=== PATIENT | female | born 1995 | race Caucasian/White ===

== ENCOUNTER 2019-03-17 19:15 | Outpatient (CLI) | payer MEDICAID, SELFPAY ==
[2019-03-17 19:38] VITALS: BMI 45.9
[2019-03-17 20:00] LABS: Hematocrit 35.1 % (37-47); Hemoglobin 11.7 g/dL (12.0-15.0); Mean Corp Hgb Conc 33.3 g/dL (32-36); Mean Corpuscular Hgb 30.6 pg (27.0-32.0); Mean Corpuscular Volume 91.9 fL (81-99); Mean Platelet Vol. 11.8 fl (6.2-12.0); Platelet Count 229 K/mm3 (150-450); RBC Distribution Width CV 13.9 % (11.6-14.6); RBC Distribution Width SD 46.3 fl (35.1-43.9); Red Blood Count 3.82 M/mm3 (4.2-5.4); White Blood Count 11.7 K/mm3 (4.4-11.0)
[2019-03-17 20:16] LABS: AST(SGOT) 12 U/L (15-37); Alanine Aminotransfer ALT/SGPT 15 U/L (13-56); Creatinine, Serum 0.63 mg/dL (0.55-1.02); EST Glomerular Filtration Rate 124 mL/min (>60); Est Glom Filt Rate - Afr Amer 150 mL/min (>60); Prothrombin Time (Protime)PT. 13.1 SECONDS (11.7-14.9); Uric Acid 4.2 mg/dL (2.6-6.0)
[2019-03-17 20:17] LABS: Protein, Urine (Random) 46.1 mg/dL (<11.9); Protein:Creat Ratio 170 mg/g CRE (0-200)
[2019-03-17] MEDS: morphine 10 MG/ML Syringe IM (20:58)
[2019-03-17] MEDS: proMETHazine 25 MG/ML Syringe IM (20:59)
--- NOTE | 2019-03-18 08:09 | OB.TRI.NOTE ---
History of Present Illness Date of Service: 03/17/19 Was patient seen by the physician?: No Reason For Visit: ELEVATED BP Date of Service: 03/17/19 Final ARMIN: 04/06/19 Gestational age: 37 Weeks and 2 Days Allergies bupropion [From Wellbutrin] Allergy (Severe, Verified 03/17/19 20:05) Other seizure amoxicillin Allergy (Intermediate, Verified 03/17/19 20:05) Hives Laboratory Studies: Laboratory Tests 03/17/19 03/17/19 03/17/19 Range/Units 19:45 19:45 19:45 WBC (4.4-11.0) K/mm3 RBC (4.2-5.4) M/mm3 Hgb (12.0-15.0) g/dL Hct (37-47) % MCV (81-99) fL MCH (27.0-32.0) pg MCHC (32-36) g/dL RDW Std Deviation (35.1-43.9) fl RDW Coeff of Birgit (11.6-14.6) % Plt Count (150-450) K/mm3 MPV (6.2-12.0) fl PT 13.1 (11.7-14.9) SECONDS INR 1.0 APTT 29.0 (24.1-36.2) Seconds Creatinine 0.63 (0.55-1.02) mg/dL Estim Creat Clear Calc 140.10 ml/min Est GFR (MDRD) Af Amer 150 (>60) mL/min Est GFR (MDRD) Non-Af 124 (>60) mL/min Uric Acid 4.2 (2.6-6.0) mg/dL AST 12 L (15-37) U/L ALT 15 (13-56) U/L U Random Total Protein 46.1 H (<11.9) mg/dL Urine Creatinine 271.00 (NO RANGE EST.) mg/dL Protein/Creatinin Ratio 170 (0-200) mg/g CRE 03/17/19 Range/Units 19:45 WBC 11.7 H (4.4-11.0) K/mm3 RBC 3.82 L (4.2-5.4) M/mm3 Hgb 11.7 L (12.0-15.0) g/dL Hct 35.1 L (37-47) % MCV 91.9 (81-99) fL MCH 30.6 (27.0-32.0) pg MCHC 33.3 (32-36) g/dL RDW Std Deviation 46.3 H (35.1-43.9) fl RDW Coeff of Birgit 13.9 (11.6-14.6) % Plt Count 229 (150-450) K/mm3 MPV 11.8 (6.2-12.0) fl PT (11.7-14.9) SECONDS INR APTT (24.1-36.2) Seconds Creatinine (0.55-1.02) mg/dL Estim Creat Clear Calc ml/min Est GFR (MDRD) Af Amer (>60) mL/min Est GFR (MDRD) Non-Af (>60) mL/min Uric Acid (2.6-6.0) mg/dL AST (15-37) U/L ALT (13-56) U/L U Random Total Protein (<11.9) mg/dL Urine Creatinine (NO RANGE EST.) mg/dL Protein/Creatinin Ratio (0-200) mg/g CRE NST - FHR Rate Baby A Baseline: 145 Variability:: Moderate Accelerations:: 15 x 15 Decelerations:: Late NST Reactive:: Yes FHR Category:: Category I Uterine Activity:: irreg ctxs Impression/Plan 23-year-old 1 para 0 at 37-1/7 weeks gestation. High risk primigravida, maternal obesity with BMI of 45, hypertension on labetalol. Patient had significant edema last night. Preeclampsia labs were normal. Blood pressures were stable. Headache resolved with medication. Patient was discharged home with kick counts and follow-up in the office on 03/19/2019 or return as needed.
== END 2019-03-17 21:50 | disposition home or self-care (01) ==
LOC: WPOUT 19:24 → WP 19:24
PROVIDERS: Family Provider Family Medicine; PCP Family Medicine; Referring Provider Obstetrics & Gynecology; Visit Provider Obstetrics & Gynecology
DX: O16.3 Unspecified maternal hypertension, third trimester (principal); O26.893 Other specified pregnancy related conditions, third trimester; O99.213 Obesity complicating pregnancy, third trimester; E66.9 Obesity, unspecified; Z3A.37 37 weeks gestation of pregnancy
CPT/HCPCS: 36415; 59025; 59050; 82565; 82570; 84156; 84450; 84460; 84550; 85027; 85610; 85730; 96372; 99218; G0378

== ENCOUNTER 2019-03-22 18:55 | Inpatient (IN) | payer MEDICAID, SELFPAY ==
[2019-03-22 19:13] VITALS: BMI 46.2
[2019-03-22] MEDS: 0.9% Saline Lock 10 ML Syringe IV (20:15)
[2019-03-22] MEDS: miSOPROStol 25 MCG TABLET VAGINAL (20:37)
[2019-03-22] MEDS: Mag Hydrox/Al Hydrox/Simeth 30 ML UDC PO (20:37)
[2019-03-22 20:46] LABS: Absolute Lymphocyte Count 2.79 X10^3/uL (0.83-4.51); Absolute Neutrophil Count 7.9 X10^3/uL (2.0-7.7); Basophil# 0.02 X10^3/uL; Basophil% 0.2 % (0-1); Eosinophil# 0.16 X10^3/uL; Eosinophils% 1.4 % (0-5); Hematocrit 36.4 % (37-47); Lymphocyte # 2.79 X10^3/ul (4.0); Lymphocyte % 24.1 % (19-41); Mean Corpuscular Hgb 30.4 pg (27.0-32.0); Mean Corpuscular Volume 92.2 fL (81-99); Mean Platelet Vol. 11.8 fl (6.2-12.0); NRBC Flagged by Analyzer 0 % (0-5); Neutrophil # 7.85 X10^3/uL (2.7-7.7); Neutrophil % 67.7 % (47-70); Platelet Count 231 K/mm3 (150-450); RBC Distribution Width SD 47.3 fl (35.1-43.9); Red Blood Count 3.95 M/mm3 (4.2-5.4); White Blood Count 11.6 K/mm3 (4.4-11.0)
[2019-03-22] MEDS: Labetalol 100 MG Tablet PO (22:07)
[2019-03-22 23:55] LABS: Amphetamine Urine VISTA NEGATIVE (<1000 ng/mL); Barbiturate Urine VISTA NEGATIVE (< 200 ng/mL); Benzodiazepine Urine VISTA NEGATIVE (< 200 ng/mL); Cocaine Urine VISTA NEGATIVE (< 300 ng/mL); Ecstacy Urine VISTA NEGATIVE (< 500 ng/mL); Methadone Urine VISTA NEGATIVE (< 300 ng/mL); PCP Urine VISTA NEGATIVE (< 25 ng/mL); THC Urine VISTA POSITIVE (< 50 ng/mL); Vista UDS pH Range 6
[2019-03-23] MEDS: Mag Hydrox/Al Hydrox/Simeth 30 ML UDC PO ×2 (01:20→13:42)
--- NOTE | 2019-03-23 01:33 | PCM.HP.OB ---
- Problem List (1) Encounter for induction of labor Status: Acute (2) Obesity affecting Status: Acute (3) History of depression Status: Acute (4) History of anxiety Status: Acute (5) Tobacco use complicating Status: Acute (6) Marijuana use Status: Acute (7) History of seizure Status: Acute (8) Chronic hypertension affecting Status: Chronic (9) Anemia affecting Status: Acute History Date of Admission: 12/27/15 Final ARMIN: 04/06/19 Final ARMIN Source: US <20 weeks Gestational age: 38 Weeks and 0 Days History of this : This is a 23 year-old, G [1], P [0], at 37 weeks 6 days gestational age. Presented for medically indicated induction of labor due to Chronic hypertension. Allergies bupropion [From Wellbutrin] Allergy (Severe, Verified 03/22/19 21:06) Other seizure amoxicillin Allergy (Intermediate, Verified 03/22/19 21:06) Hives Home Medications: Home Medications Aspirin E.C. [Ecotrin] 1 tab PO DAILY 03/17/19 Labetalol [Trandate] 100 mg PO BID 03/17/19 Pnv No.95/Ferrous Fum/Folic AC [ Formula Tablet] 1 tab PO DAILY 03/17/19 Smoking Status: Current every day smoker Alcohol: None Substance Use Type: Marijuana Number of Fetus(es): 1 NST - FHR Rate Baby A Baseline: 140 Variability:: Moderate Accelerations:: 15 x 15 Decelerations:: None NST Reactive:: Yes FHR Category:: Category I Uterine Activity:: every 2 to 4 minutes, moderate History Past Pregnancies: Past Pregnancies Delivery Date Name GA/ Weeks Outcome Route Wt Infant Sex Labor Length Anesthesia Delivery Location Provider FOB Labs: Mom's Labs & Results 03/22/19 03/22/19 03/22/19 20:15 20:15 23:20 WBC 11.6 H RBC 3.95 L Hgb 12.0 Hct 36.4 L MCV 92.2 MCH 30.4 MCHC 33.0 RDW Std Deviation 47.3 H RDW Coeff of Birgit 14.0 Plt Count 231 MPV 11.8 Immature Gran % (Auto) 0.600 Neut % (Auto) 67.7 Lymph % (Auto) 24.1 [place] % (Auto) 6.0 Eos % (Auto) 1.4 Baso % (Auto) 0.2 Absolute Neuts (auto) 7.9 H Absolute Lymphs (auto) 2.79 Nucleated RBC % 0 Urine Opiates Screen NEGATIVE Urine Methadone Screen NEGATIVE Ur Barbiturates Screen NEGATIVE Ur Phencyclidine Scrn NEGATIVE Ur Amphetamines Screen NEGATIVE U Methamphetamin-MDMA NEGATIVE U Benzodiazepines Scrn NEGATIVE Urine Cocaine Screen NEGATIVE U Cannabinoids Screen POSITIVE H Ur Drug Screen Comment Blood Type O POSITIVE Antibody Screen NEGATIVE Course Did the patient receive Yes care? Labs Blood Type: O RH: POSITIVE RPR/VDRL/Syphilis Nonreactive Rubella status Immune HbSAg Negative Date Done: 09/30/18 Chlamydia Negative Gonorrhea Negative HIV/AIDS Non-Reactive Group B Strep: Negative Current Obstetrical History Gestational Diabetes No Incompetent Cervix No Infertility No IUGR No Macrosomia No Hypertension/Pre-eclampsia Yes: chronic HTN Placenta Previa/Abruption No PTL/PROM No Uterine anomaly No Oligohydramnios No Polyhydramnios No Multiple gestation No Past Medical History Asthma No Diabetes No Hypertension Yes: chronic HTN Heart disease No Mitral valve prolapse No Neurologic/Seizure disorder/ Yes: migraines; seizure in 2017 Migraines Kidney disease No Liver disease No Varicosities No Clotting disorders/Hx of DVT No Thyroid Dysfunction No Other medical diseases No Psychiatric disorders Yes: depression, anxiety, anger disorder Major trauma No Abnormal PAP smear Yes: 2019 abnormal with first visit Sleep apnea No Mammogram in the last 2 years No Social History Marital Status: SINGLE Alleged father Jay Greco Hx Smoking Yes Smoking Status Current every day smoker Substance Use Type Marijuana How long have you used during for nausea substances (years)? What date/time did you last pt states last used 3 weeks ago use any of the above? Have you had any previous no inpatient or outpatient treatment Review of Systems Constitutional: Denies: Chills, Fever, Weight Change HEENT: Denies: Head Aches, Sinus Congestion, Sinus Drainage Cardiovascular: Denies: Chest Pain, Palpitations Respiratory: Denies: Cough, Shortness of breath at rest, Sputum production Gastrointestinal: Denies: Abdominal Pain, Nausea, Vomiting Genitourinary: Denies: Dysuria Neurological: Denies: Numbness, Tingling, Focal weakness Psychiatric: Denies: Anxiety, Depression, Homicidal Ideations, Suicidal Ideations Physical Exam General: Alert, Oriented x3, Cooperative HEENT: Atraumatic, Normocephalic Cardiovascular: Regular rate, Regular Rhythm, No murmurs Lungs: Clear to auscultation, Normal air movement, No rhonchi, No wheeze Abdomen: Bowel Sounds Present, Gravid Extremities:: No edema Neurological: Deep Tendon Reflexes 2+/4 and Symmetrical. Negative for: Clonus TESTS SUPERINTENDENT: Normal external genitalia Estimated gestational size: Appropriate for gestational size Presentation: Cephalic Assessment/Plan All Active Problems Encounter for induction of labor (Acute) Obesity affecting (Acute) History of depression (Acute) History of anxiety (Acute) Tobacco use complicating (Acute) Marijuana use (Acute) History of seizure (Acute) Anemia affecting (Acute) Syncope (Acute) This is a 23 year-old, G [1], P [0], at 37 weeks gestational age. Induction of Labor Category 1 FHT P: 1) Admit to labor and delivery. Routine labs 2) IV saline lock 3) Planning epidural for pain management. May have placed upon request. 4) Cytotec for cervical ripening. 5) collaborative physician and notified of patient admission and status
[2019-03-23] MEDS: 0.9% Normal Saline 100 ML IV.SOLN. IY (01:48)
[2019-03-23] MEDS: proMETHazine 25 MG/ML Syringe 12.5 MG IV (02:15)
[2019-03-23] MEDS: Nalbuphine 10 MG/ML Ampul IV ×2 (02:15→08:27)
[2019-03-23] MEDS: 0.9% Saline Lock 10 ML Syringe IV (02:15)
[2019-03-23] MEDS: Oxytocin 30 units/NS 500 ml 30 UNITS/500 ML IV.SOLN IV (02:59)
[2019-03-23] MEDS: Lactated Ringers 1,000 ML 50 ML IV (02:59)
[2019-03-23] MEDS: Lactated Ringers 500 ML 999 ML IV ×2 (09:40→21:07)
[2019-03-23] MEDS: fentaNYL-bupivacaine (epidural) 100 ML BAG EPIDURAL ×3 (10:41→21:07)
[2019-03-23] MEDS: Lactated Ringers 1,000 ML 200 ML IV ×3 (13:03→23:43)
[2019-03-23] MEDS: Ondansetron 4 MG/2 ML Vial IV (15:43)
[2019-03-23] MEDS: Acetaminophen 325 MG Tablet PO (21:15)
[2019-03-24] MEDS: Labetalol 200 MG Tablet PO (00:18)
[2019-03-24] MEDS: Oxytocin 30 units/NS 500 ml 30 UNITS/500 ML IV.SOLN 334 UNITS IV (01:39)
--- NOTE | 2019-03-24 01:54 | PCM.OPRPT ---
Vaginal Delivery Maternal Presentation: Medically Indicated Induction Method of Induction: Pitocin, Dimas Bulb, Amniotomy, Cytotec Amniotic Membrane Rupture Type: Artificial Amniotic Fluid Description: Clear Final ARMIN: 04/06/19 Gestational age: 38 Weeks and 1 Days Date of Procedure: 03/24/19 Pre-Operative Diagnosis: labor, maternal exhaustion Post-Operative Diagnosis: same Surgery/ Procedure Performed: Vacuum Assisted Vaginal Delivery - outlet Type of Anesthesia: Epidural Description of Procedure: Patient was complete and pushing. She had been pushing for half an hour with labia approximately 3 to 4 cm without significant descent and 1/2-hour. She had good maternal pushing effort. Estimated weight was less than 4500 g. Dimas catheter was in place. Epidural was adequate. I discussed with the patient risk benefits and alternatives to trial of outlet vacuum-assisted vaginal delivery. Patient desired to proceed. The vacuum was placed on the flexion point, and vacuum created to 550 mmHg. Pulled with 2 contractions during 3 total pushes to . The vacuum was removed. On the next contraction the patient then delivered the baby with spontaneous pushing efforts only. A vigorous male infant was delivered GEOFFREY over a second-degree perineal laceration. A loose nuchal cord ?1 was easily reduced. The remainder the infant was delivered with maternal pushing and gentle traction only in less than 15 seconds. The Pitocin infusion was initiated for active management of the third stage. The cord was clamped and cut after 1 minute. The infant was attended to by the waiting nursing staff. The placenta was delivered spontaneously and intact. The cervix and vagina were intact. The second-degree perineal laceration was repaired with 3-0 Vicryl suture in a running standard fashion. Sponge and needle counts were correct. A vaginal sweep was completed by me. Presentation: GEOFFREY Placental Delivery Description: Spontaneous Placenta Disposition: [facility] Cord Vessel Description: 3 Vessels Nuchal Cord Compression: Without compression Cord Gases drawn per routine: ABG, VBG Cord Entanglement: Around neck x 1, loose Drain: Dimas to straight drain Estimated Blood Loss: 300 Infant A gender: Male (1 minute): 8 (5 minute): 8 Episiotomy Description: None Laceration: 2nd degree Complications: None
--- NOTE | 2019-03-24 03:59 | NURSING ---
Assisted pt up to BR, tolerated well, R leg has partial sensation from epidural and required staff assist x2. Pt educated on pericare and s/s to report.
[2019-03-24] MEDS: Naproxen 250 MG Tablet 500 MG PO ×3 (04:01→20:19)
[2019-03-24] MEDS: Acetaminophen 500 MG Tablet 1000 MG PO ×2 (06:06→23:24)
[2019-03-24 07:45] VITALS: BP 134/78; PULSE 81; RESP 17; TEMP 36.7; O2SAT 100
--- NOTE | 2019-03-24 08:06 | PN.OBGYN_ITS ---
Patient Problems: Active and Suspected Problems Encounter for induction of labor (Acute) Obesity affecting (Acute) History of depression (Acute) History of anxiety (Acute) Tobacco use complicating (Acute) Marijuana use (Acute) History of seizure (Acute) Anemia affecting (Acute) Subjective: Patient doing well. She denies headache, lightheadedness, chest pain, shortness of breath, palpitations, leg pain. Lochia normal. Without difficulty. Breast- feeding. - Physical Exam Vitals/I&O's: Weight: 304 lb 0.279 oz Body Mass Index (BMI) 46.2 Intake and Output for Last 24 Hours 03/22/19 03/23/19 03/24/19 23:59 23:59 23:59 Intake Total 5568.32 / 5568.32 851.43 / 851.43 Output Total 2049 / 2049 1000 / 1000 Balance 3518.32 / 3518.32 -148.57 / -148.57 General: Alert, No apparent distress HEENT: Atraumatic Lungs: Normal air movement Abdomen: Soft, Non Tender Skin: No rashes Neurological: Neuro grossly intact Psych/Mental Status: Normal Affect, Appropriate Current Medications Acetaminophen (Tylenol) 1,000 mg PO Q8H PRN PRN PRN Reason: Pain Score 1-3/10 Last Admin: 03/24/19 06:06 Dose: 1,000 mg Documented by: Bisacodyl (Dulcolax) 10 mg RECTAL UD PRN PRN Reason: If no BM Dibucaine (Dibucaine) 1 applic TOPICAL TID PRN PRN; Protocol PRN Reason: Discomfort Hydrocortisone (Hytone) 1 applic TOPICAL TID PRN PRN; Protocol PRN Reason: Discomfort Labetalol HCl (Trandate) 100 mg PO BID JELENA Methylergonovine Maleate (Methergine) 0.2 mg IM X1 PRN PRN Reason: Excess bleeding/uterine atony Naproxen (Naprosyn) 500 mg PO Q8H PRN PRN PRN Reason: Pain Score 1-3/10 Last Admin: 03/24/19 04:01 Dose: 500 mg Documented by: Ondansetron HCl (Zofran) 4 mg IV Q4H PRN PRN PRN Reason: Nausea Prochlorperazine Edisylate (Compazine Iv) 10 mg IV Q6H PRN PRN PRN Reason: NAUSEA/VOMITING Senna/Docusate Sodium (Senokot-S, Li-Colace) 1 - 2 tablet PO DAILY PRN PRN PRN Reason: Constipation Simethicone (Mylicon) 80 mg PO PCHS PRN PRN Reason: Indigestion/Stomach pain Sodium Chloride () 5 - 15 ml IV UD PRN PRN Reason: SALINE FLUSH Medical Necessity - Tobacco Use Smoking Status: Current every day smoker Assessment/Plan All Active Problems Encounter for induction of labor (Acute) Obesity affecting (Acute) History of depression (Acute) History of anxiety (Acute) Tobacco use complicating (Acute) Marijuana use (Acute) History of seizure (Acute) Anemia affecting (Acute) Syncope (Acute) PPD#0 s/p vaginal delivery - Pt doing well - - Dispo: Routine care
--- NOTE | 2019-03-24 08:21 | NURSING ---
reviewed student's documentation for completion
[2019-03-24] MEDS: Labetalol 100 MG Tablet PO ×2 (10:41→21:26)
[2019-03-24] MEDS: Hydrocortisone 2.5% Crm 1 APPLIC TOPICAL (12:05)
[2019-03-24 13:26] VITALS: BP 130/76; PULSE 84; RESP 16; TEMP 36.8; O2SAT 100
[2019-03-24] MEDS: oxyCODONE 5 MG Tablet PO ×3 (13:28→21:28)
[2019-03-24 16:08] VITALS: BP 160/81; PULSE 75; RESP 16; TEMP 36.7; O2SAT 100
[2019-03-24 20:10] VITALS: BP 142/81; PULSE 74; RESP 18; TEMP 35.9
[2019-03-24 23:20] VITALS: BP 133/69; PULSE 75; RESP 18; TEMP 35.7
[2019-03-25] VITALS (7 sets, daily range): BP systolic 124–143; BP diastolic 69–79; PULSE 72–88; RESP 16–72; TEMP 36.1–36.6; O2SAT 96–99
[2019-03-25] MEDS: Naproxen 250 MG Tablet 500 MG PO (03:00)
[2019-03-25 06:23] LABS: Hematocrit 28.9 % (37-47); Hemoglobin 9.5 g/dL (12.0-15.0); Mean Corp Hgb Conc 32.9 g/dL (32-36); Mean Corpuscular Hgb 30.7 pg (27.0-32.0); Mean Corpuscular Volume 93.5 fL (81-99); Mean Platelet Vol. 11.6 fl (6.2-12.0); Platelet Count 156 K/mm3 (150-450); RBC Distribution Width SD 47.3 fl (35.1-43.9); Red Blood Count 3.09 M/mm3 (4.2-5.4); White Blood Count 13.8 K/mm3 (4.4-11.0)
[2019-03-25] MEDS: oxyCODONE 5 MG Tablet PO (08:31)
--- NOTE | 2019-03-25 08:43 | PCM.PN.OB ---
Patient Problems: Active and Suspected Problems Encounter for induction of labor (Acute) Obesity affecting (Acute) History of depression (Acute) History of anxiety (Acute) Tobacco use complicating (Acute) Marijuana use (Acute) History of seizure (Acute) Anemia affecting (Acute) Subjective: Doing well per patient and nursing staff. Ambulating and taking PO without difficulty. . Denies headache, visual changes, chest pain, shortness of breath, increased vaginal bleeding or clots. Lochia normal. Denies depression. Planning D/C home today. - Physical Exam Vitals/I&O's: Vital Signs Temp Pulse Resp BP Pulse Ox 97.0 F L 75 16 143/79 H 99 03/25/19 08:39 03/25/19 08:39 03/25/19 08:39 03/25/19 08:39 03/25/19 08:39 Oxygen Delivery Method Room Air Weight: 304 lb 0.279 oz Body Mass Index (BMI) 46.2 Intake and Output for Last 24 Hours 03/23/19 03/24/19 03/25/19 23:59 23:59 23:59 Intake Total 5568.32 / 5568.32 851.43 / 851.43 Output Total 2049 / 2049 1000 / 1000 Balance 3518.32 / 3518.32 -148.57 / -148.57 General: Alert, Oriented x3 HEENT: Atraumatic, Normocephalic Neck: Trachea Midline Lungs: Clear to auscultation, Normal air movement, No rhonchi, No wheeze Cardiovascular: Regular rate, Regular Rhythm, No murmurs Abdomen: Bowel Sounds Present, Soft, - - Fundus firm 2 below U Extremities: No edema - Henri's negative Neurological: Deep Tendon Reflexes 2+/4 and Symmetrical Psych/Mental Status: Normal Affect, Appropriate Laboratory Results 03/25/19 06:10: WBC 13.8 H, RBC 3.09 L, Hgb 9.5 L, Hct 28.9 L, MCV 93.5, MCH 30.7, MCHC 32.9, RDW Std Deviation 47.3 H, RDW Coeff of Birgit 14.0, Plt Count 156, MPV 11.6 Current Medications Acetaminophen (Tylenol) 1,000 mg PO Q8H PRN PRN PRN Reason: Pain Score 1-3/10 Last Admin: 03/24/19 23:24 Dose: 1,000 mg Documented by: Bisacodyl (Dulcolax) 10 mg RECTAL UD PRN PRN Reason: If no BM Dibucaine (Dibucaine) 1 applic TOPICAL TID PRN PRN; Protocol PRN Reason: Discomfort Hydrocortisone (Hytone) 1 applic TOPICAL TID PRN PRN; Protocol PRN Reason: Discomfort Last Admin: 03/24/19 12:05 Dose: 1 oint Documented by: Labetalol HCl (Trandate) 100 mg PO BID JELENA Last Admin: 03/24/19 21:26 Dose: 100 mg Documented by: Methylergonovine Maleate (Methergine) 0.2 mg IM X1 PRN PRN Reason: Excess bleeding/uterine atony Naproxen (Naprosyn) 500 mg PO Q8H PRN PRN PRN Reason: Pain Score 1-310 Last Admin: 03/25/19 03:00 Dose: 500 mg Documented by: Ondansetron HCl (Zofran) 4 mg IV Q4H PRN PRN PRN Reason: Nausea Oxycodone HCl (Oxyir) 5 mg PO Q4H PRN PRN PRN Reason: Pain Score 6-1010 Last Admin: 03/25/19 08:31 Dose: 5 mg Documented by: Prochlorperazine Edisylate (Compazine Iv) 10 mg IV Q6H PRN PRN PRN Reason: NAUSEA/VOMITING Senna/Docusate Sodium (Senokot-S, Li-Colace) 1 - 2 tablet PO DAILY PRN PRN PRN Reason: Constipation Simethicone (Mylicon) 80 mg PO PCHS PRN PRN Reason: Indigestion/Stomach pain Sodium Chloride () 5 - 15 ml IV UD PRN PRN Reason: SALINE FLUSH Medical Necessity - Tobacco Use Smoking Status: Current every day smoker Assessment/Plan All Active Problems Encounter for induction of labor (Acute) Obesity affecting (Acute) History of depression (Acute) History of anxiety (Acute) Tobacco use complicating (Acute) Marijuana use (Acute) History of seizure (Acute) Anemia affecting (Acute) Syncope (Acute) A:Vacuum Assisted Vaginal Delivery PPD #2 Blood Loss Anemia Chronic HTN P: 1) Routine care and discharge instructions 2) Ferrous sulfate 325mg PO BID to start at home due to Hgb 9.5 3) BP stable Labetalol 100mg PO BID, continue. Preeclampsia symptoms reviewed and when to call. Follow up in 5 days for blood pressure check in office 4) Follow up in 6 weeks for visit 5) Motrin prescription for pain
[2019-03-25] MEDS: Labetalol 100 MG Tablet PO ×2 (08:56→14:03)
--- NOTE | 2019-03-25 09:00 | DCINST_ITS ---
Discharge Diet: No Restrictions Discharge Activity: Return to Normal Activity, May not drive while taking narcotic pain medications., May Shower, May Take a Tub Bath May resume sexual activity in: 4-6 weeks Weight Bearing Status: Full weight bearing Additional Activity Instructions:: Nothing in the vagina for 4-6 weeks. You may return to work/school in 6 weeks. Call your doctor if your incision/area has: Continuous Slow Oozing, Sudden Increased Bleeding, Increased Pain/ Swelling, Increased Redness, Foul Smelling Discharge Call your doctor if you observe: Fever of 101 or Higher, Inability to urinate, Inability to have a bowel movement, Using more than one pad per hour, Shortness of breath, Chest pain, Increased palpitations (irregular heartbeat), Calf discomfort, Uncontrolled pain Additional Instructions: If you experience any of the following, contact your healthcare provider. * Bleeding that soaks a pad every hour for 2 hours * Fever 100.4 or higher * Unrelieved incision or abdominal pain * Swelling, redness, discharge or bleeding from your incision or episiotomy site * Your incision begins to separate * Problems urinating (including inability to urinate or burning while urinating). * Visual changes * Severe headache * Flu-like symptoms * Pain or redness in one of both of your breasts * Pain, warmth, tenderness or swelling in your legs, especially the calf area * Frequent nausea and vomiting * Symptoms of depression or anxiety If you experience any of the following, call 911 or go to the nearest Emergency Room. * Chest pain * Problems breathing * Seizure activity * Partial or complete paralysis of a body part, slurred speech, weakness or drooping of the face, or a sudden inability to walk or hold your balance Allergies/Adverse Reactions: Allergies bupropion [From Wellbutrin] Allergy (Severe, Verified 03/22/19 21:06) Other seizure amoxicillin Allergy (Intermediate, Verified 03/22/19 21:06) Hives Medications to take at Discharge Labetalol [Trandate (Beta Deepa)] 100 mg PO BID 03/17/19 Pnv No.95/Ferrous Fum/Folic AC [ Formula Tablet] 1 tab PO DAILY 03/17/19 Ferrous Sulfate 325 mg PO BIDCM #60 tab 03/25/19 Ibuprofen [Motrin] 600 mg PO Q6H PRN PRN #30 tab 03/25/19 The following prescriptions were given: Ferrous Sulfate 325 mg PO BIDCM #60 tab Transmission Status: Pending to [facility] Ibuprofen [Motrin] 600 mg PO Q6H PRN PRN #30 tab PRN Reason: Pain Or Fever Transmission Status: Pending to [facility] Please Follow Up With: Jenifer Alexander MD When: Call to make an appointment with your doctor in 3-5 days for blood perssure check and 6 weeks. Primary Care Physician: Eddie Riley MD [Primary Care Provider] - Test Results: Test results from this visit will be discussed in further detail at your follow- up appointment, if applicable.
--- NOTE | 2019-03-25 09:44 | NURSING ---
Pt's blood pressure was 143/79 this morning this was reported to Javy she talked over the poc with they decided to increase the pt's labetalol to 100mg po TID. I told Javy i would retake the pt's bp again around 10 am and call her with those results. On 0800 rounds I checked the baby's diaper, cotton balls not in the diaper, we have been trying to collect a urine on baby and the cotton balls continue to disappear out of the diaper. This was reported to LUDWIN Brooks.
[2019-03-25] MEDS: Acetaminophen 500 MG Tablet 1000 MG PO (12:19)
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
--- NOTE | 2019-03-25 13:55 | CASEMGMT ---
Social Work Labor and Delivery Called [facility] ([facility]) at [phone]. Spoke with Marjan Bocanegra regarding referral due to substance exposed infant in utero. Reported other concerns and risk factors including: baby's cotton balls from diapers disappearing, FOB with history of marijuana use and untreated mental health, maternal mental health history currently untreated. Reported mother of baby (MOB) comment about being irritated with feeding and then stating it was the baby that was irritated. Brief maternal and infant histories reported. Marjan made aware of MOB and baby discharging home today. Plan: MOB and baby to home today. Resources provided for home going (see previous socia work documentation this date for details). Monitor for meconium drug screen results. -SYED Quiñonez, WINDOWS VMWARE ENGINEER
== END 2019-03-25 17:30 | disposition home or self-care (01) | DRG 560 ==
PROVIDERS: Obstetrics & Gynecology; Admitting Provider Advanced Practice Midwife; Family Provider Family Medicine; PCP Family Medicine; Visit Provider Advanced Practice Midwife
DX: O10.92 Unspecified pre-existing hypertension complicating childbirth (principal); O75.81 Maternal exhaustion complicating labor and delivery; O90.81 Anemia of the puerperium; D62 Acute posthemorrhagic anemia; O99.02 Anemia complicating childbirth; O70.1 Second degree perineal laceration during delivery; O69.81X0 Labor and delivery complicated by cord around neck, without compression, not applicable or unspecified; O99.214 Obesity complicating childbirth; E66.9 Obesity, unspecified; O99.334 Smoking (tobacco) complicating childbirth; F17.200 Nicotine dependence, unspecified, uncomplicated; Z3A.37 37 weeks gestation of pregnancy; Z37.0 Single live birth
CPT/HCPCS: 59025; 59050; 80307; 85025; 85027; 86850; 86900; 86901; 99218; J7120; A4216; G0378; J2405

== ENCOUNTER 2021-10-05 19:04 | Emergency (ER) | payer MEDICAID, SELFPAY ==
[2021-10-05 19:04] VITALS: BP 160/94; PULSE 90; RESP 18; TEMP 36.2; O2SAT 98; BMI 39.5
--- NOTE | 2021-10-05 19:19 | CT_ITS ---
INDICATION: migraines EXAMINATION: CT BRAIN - CT Head or Brain W/O Contrast Injection TECHNIQUE: Multiple axial images were obtained of the head without intravenous contrast. A radiation dose optimization technique was used for this scan. IV Contrast dosage and agent: None. COMPARISON: 10/27/2016 CT head. FINDINGS: BRAIN PARENCHYMA: No intra- or extra-axial hemorrhage. No intracranial mass or mass effect. Elliott/white matter differentiation is maintained and there is no blurring of the basal ganglia. There is no hyperdense vessel. Subtle bilateral, right greater than left, basal ganglia increased density is unchanged compared to prior exam. Posterior fossa structures are unremarkable. CSF SPACES: Appropriate for age. No hydrocephalus. Basal cisterns are patent. CALVARIUM, SKULL BASE, PARANASAL SINUSES AND MASTOID AIR CELLS: Clear. No discrete lytic or blastic abnormalities. ORBITS: Both globes, extraocular muscles, optic nerves and retrobulbar fat appear unremarkable. ASPECTS Score for Acute Strokes: 10 CT/Brain/Head without Contrast IMPRESSION: Negative Brain CT without contrast. Electronically Signed: Álvaro Mann DO at 20:17 EDT ,
--- NOTE | 2021-10-05 19:20 | EKG12_ITS ---
Test Reason : DYSRHYTHMIA Blood Pressure : / mmHG Vent. Rate : 087 BPM Atrial Rate : 087 BPM P-R Int : 154 ms QRS Dur : 070 ms QT Int : 354 ms P-R-T Axes : 058 031 033 degrees QTc Int : 425 ms Normal sinus rhythm Normal ECG Confirmed by PEDRO SANDERS, SERGO ([id number]), sports editor MARLON MADISON ([id number]) on 10/09/2021 7:24:36 AM Referred By: GRACIE Confirmed By:SERGO VASQUEZ MD
--- NOTE | 2021-10-05 19:22 | EDS_ITS ---
HPI History of Present Illness Chief Complaint: Headache Detail of Chief Complaint: Migraine Informant: patient and family Onset/Context/Timing Onset: Yesterday Current Severity: Moderate Maximum Severity: Moderate Narrative Narrative: Patient present secondary to migraine headache. She is reportedly been having frequent migraines over the last 6 weeks. This particular episode started last evening. She states that she was at work last night when she got static in her vision from her left eye. This lasted approximately 40 minutes and resolved followed by migraine. She states it is behind her eyes. This is typical location for her migraines. She also raises concern about a possible recent seizure. 5 years ago the patient had a reported seizure and was on Wellbutrin at the time. It was attributed to her medication and this was stopped. 6 weeks ago the patient was exerting herself. She was in the heat and became lightheaded and dizzy. She went inside and sat down and reportedly had seizure activity. She did not bite her tongue but did lose bladder control. It does not sound like she had a postictal period and came back to baseline mental status rather quickly. Patient is concerned with the increased frequency of her migraines and it might trigger another seizure. [facility] Medical History History of anxiety History of depression History of seizure Syncope Home Medications PNV cmb#95-ferrous fumarate-FA 1 tab PO DAILY 03/17/19 [History Last Taken 03/21/19 21:00] labetalol 100 mg PO BID 03/17/19 [History Last Taken 03/22/19 12:00] ferrous sulfate 325 mg PO BIDCM #60 tab 03/25/19 [Rx Last Taken Unknown] ibuprofen 600 mg PO Q6H PRN PRN #30 tab 03/25/19 [Rx Last Taken Unknown] Allergy/AdvReac Type Severity Reaction Status Date / Time bupropion [From Wellbutrin] Allergy Severe Other Verified 10/05/21 19:08 amoxicillin Allergy Intermediate Hives Verified 10/05/21 19:08 Social History Smoking Status: Current every day smoker tobacco type: cigarettes ROS ROS ED Constitutional Constitutional ED: Denies chills or fever(s) Eyes Eyes: Reports change in vision left (Last evening, currently resolved) ENT ENT ED: Denies sore throat Cardiovascular Cardiovascular: Denies chest pain Respiratory/Chest Respiratory/Chest: Denies cough or dyspnea Gastrointestinal Gastrointestinal: Denies abdominal pain, nausea or vomiting Genitourinary Genitourinary ED: Denies dysuria Musculoskeletal Musculoskeletal: Denies back pain Integumentary Denies rash Neurologic Neurologic: Reports headache(s); Denies weakness Allergic/Immunologic Allergic/Immunologic ED: Denies urticaria EXAM Physical Exam Const Vital Signs: 10/05/21 19:04 Temperature 97.1 F L Temperature Source Temporal Pulse Rate 90 Respiratory Rate 18 Blood Pressure 160/94 H Blood Pressure Mean 116 Pulse Ox 98 Oxygen Delivery Method Room Air Positive well nourished and well developed General Appearance ED: well developed HEENT Reports moist mucous membranes Eyes PERRL and EOMs intact bilaterally Neck supple Chest Wall inspection of chest normal and palpation of chest normal Resp normal respiratory effort and clear to auscultation bilaterally Cardio regular rate and regular rhythm GI non-tender Palpation: soft Extremity normal to inspection Neuro oriented x3 and no sensory deficits noted Sensorium / Orientation: alert Motor Exam: strength 5/5 throughout Psych mental status grossly normal Skin no rashes or lesions noted MDM MDM MDM Narrative Medical decision making narrative: Patient is given IV fluids along with Toradol, Reglan, Benadryl. Head CT obtained. Patient placed on cardiac cath technician and EKG obtained secondary to reported history of syncope. Lab work obtained. Lab Data Attestation: I reviewed the patient's lab results. Labs: Laboratory Results - last 24 hr 10/05/21 10/05/21 10/05/21 19:35 19:35 19:35 WBC 11.5 H RBC 4.47 Hgb 14.1 Hct 42.2 MCV 94.4 MCH 31.5 MCHC 33.4 RDW Std Deviation 43.8 RDW Coeff of Birgit 12.6 Plt Count 265 MPV 10.6 Immature Gran % (Auto) 0.400 Neut % (Auto) 58.7 Lymph % (Auto) 31.8 [place] % (Auto) 4.9 Eos % (Auto) 3.8 Baso % (Auto) 0.4 Absolute Neuts (auto) 6.8 Absolute Lymphs (auto) 3.67 Nucleated RBC % 0 Sodium 139 Potassium 3.7 Chloride 107 Carbon Dioxide 26.0 Anion Gap 6 BUN 13 Creatinine 0.76 Estim Creat Clear Calc 113.16 Est GFR (MDRD) Af Amer 118 Est GFR (MDRD) Non-Af 97 BUN/Creatinine Ratio 17.1 Glucose 114 H Calcium 8.6 Serum , Qual NEGATIVE Radiography Diagnostic Testing: Clinical Impression(s) from Imaging Studies Brain CT 10/05/21 19:19 IMPRESSION: Negative Brain CT without contrast. Electronically Signed: Álvaro Mann, DO at 20:17 EDT , EKG Initial EKG: Attestation: I personally reviewed and interpreted this EKG as follows: Interpretation: Sinus Rhythm (Sinus 87 with no acute ischemia.) Treatment and Re-Evaluation Narrative: On repeat evaluation patient does feel significantly improved. Lab work reviewed with her and unremarkable. Head CT normal. EKG reveals no acute findings. Repeat blood pressure is 122/75. I will refer her to Dr. Price for follow-up secondary to migraines with syncope versus seizure activity. Discharge Plan Triage Chief Complaint: Headache ED Provider: Yanet Dodge Dx/Rx/DC Orders Clinical Impression: Migraine Instructions: ED, Migraine (Classical) Prescriptions: No Action labetalol 100 MG tablet 100 mg PO BID RF: 0 PNV cmb#95-ferrous fumarate-FA 1 EACH tablet 1 tab PO DAILY RF: 0 ibuprofen 600 MG tablet 600 mg PO Q6H PRN PRN (Reason: Pain Or Fever) Qty: 30 RF: 0 ferrous sulfate 325 MG tablet 325 mg PO BIDCM Qty: 60 RF: 0 Stand Alone Forms: ED Work / School Excuse Primary Care Provider: Eddie Riley Referrals: Dante Price MD [STAFF PHYSICIAN] - As Needed Eddie Riley MD [Primary Care Provider] - Disposition Disposition: Home, Self Care
[2021-10-05] MEDS: Metoclopramide 10 MG/2 ML Vial IV (19:35)
[2021-10-05] MEDS: DiphenhydrAMINE 50 MG/ML Syringe 25 MG IV (19:37)
[2021-10-05] MEDS: Ketorolac 30 MG/ML Syringe IV (19:38)
[2021-10-05 20:05] LABS: Absolute Lymphocyte Count 3.67 X10^3/uL (0.83-4.51); Absolute Neutrophil Count 6.8 X10^3/uL (2.0-7.7); Basophil# 0.05 X10^3/uL; Basophil% 0.4 % (0-1); Eosinophil# 0.44 X10^3/uL; Eosinophils% 3.8 % (0-5); Hematocrit 42.2 % (37-47); Hemoglobin 14.1 g/dL (12.0-15.0); Lymphocyte # 3.67 X10^3/ul (0.83-4.51); Lymphocyte % 31.8 % (19-41); Mean Corp Hgb Conc 33.4 g/dL (32-36); Mean Corpuscular Hgb 31.5 pg (27.0-32.0); Mean Corpuscular Volume 94.4 fL (81-99); Mean Platelet Vol. 10.6 fl (6.2-12.0); Monocyte# 0.56 X10^3/uL; Monocyte% 4.9 % (0-10); NRBC Flagged by Analyzer 0 % (0-5); Neutrophil # 6.76 X10^3/uL (2.7-7.7); Neutrophil % 58.7 % (47-70); Platelet Count 265 K/mm3 (150-450); RBC Distribution Width CV 12.6 % (11.6-14.6); RBC Distribution Width SD 43.8 fl (35.1-43.9); Red Blood Count 4.47 M/mm3 (4.2-5.4); White Blood Count 11.5 K/mm3 (4.4-11.0)
[2021-10-05 20:15] LABS: Internal QC Validated? YES +Cl - CLEAR BKGD; Pregnancy, Serum, hCG Quali. NEGATIVE Negative
[2021-10-05 20:19] LABS: Anion Gap 6 (5-15); BUN 13 mg/dL (7-18); BUN/Creat Ratio 17.1 RATIO (10-20); Calcium,Total 8.6 mg/dL (8.5-10.1); Chloride 107 mmol/L (98-107); Creatinine, Serum 0.76 mg/dL (0.55-1.02); EST Glomerular Filtration Rate 97 mL/min (>60); Est Glom Filt Rate - Afr Amer 118 mL/min (>60); Estimated Creatinine Clearance 113.16 ml/min; Glucose 114 mg/dL (74-106); Potassium 3.7 mmol/L (3.5-5.1); Sodium Level 139 mmol/L (136-145)
[2021-10-05 20:49] VITALS: BP 122/75; PULSE 74; RESP 16; O2SAT 97
== END 2021-10-05 20:51 | disposition home or self-care (01) ==
PROVIDERS: Emergency Provider Emergency Medicine; PCP Family Medicine; Visit Provider Emergency Medicine
DX: G43.909 Migraine, unspecified, not intractable, without status migrainosus (principal); F17.210 Nicotine dependence, cigarettes, uncomplicated; Z79.899 Other long term (current) drug therapy
CPT/HCPCS: 70450; 80048; 84703; 85025; 93005; 96361; 96374; 96375; 99284; J7030

== ENCOUNTER 2022-10-02 15:08 | Emergency (ER) | payer MEDICAID, SELFPAY ==
[2022-10-02 15:09] VITALS: BP 163/97; PULSE 84; RESP 16; TEMP 36.6; O2SAT 99; BMI 43.7
--- NOTE | 2022-10-02 15:54 | ED.RN ---
PT. GETS UP AND WALKS OUT WITHOUT SAYING ANYTHING. BEFORE DR. MAN COULD VISIT.
== END 2022-10-02 16:10 | disposition left against medical advice (07) ==
LOC: ED 16:10
PROVIDERS: PCP Family Medicine
DX: M54.9 Dorsalgia, unspecified (principal); Z53.21 Procedure and treatment not carried out due to patient leaving prior to being seen by health care provider
CPT/HCPCS: 99281